=== PATIENT | male | born 1970 | race Caucasian/White ===

== ENCOUNTER → 2020-12-05 | Outpatient (CLI) | payer BC ==
[~2020-12-05] MED LIST: BENADRYL 25MG C25 MG PO; MEDROL DOSEPAK 24 MG PO; ZESTRIL/PRINIVI10 MG PO; ZYRTEC10 M3 PO
== END ==
LOC: KOH-I 14:18
DX: M79.604 Pain in right leg (principal); M54.41 Lumbago with sciatica, right side; M47.816 Spondylosis without myelopathy or radiculopathy, lumbar region
CPT/HCPCS: 72100; 73502

== ENCOUNTER 2021-05-09 03:27 | Emergency (ER) | payer BC ==
[2021-05-09 04:40] LABS: HEMOGLOBIN 14.2 gm/dl (14.0-17.5); RED BLOOD COUNT 4.84 M/UL (4.20-5.50)
[2021-05-09] MEDS ORDERED: FLOMAX 0.4 MG0.4 MG PO (06:02)
[2021-05-09] MEDS ORDERED: TORADOL 10 MG T10 MG PO (06:02)
[2021-05-09] MEDS ORDERED: ZOFRAN ODT 4 MG4 MG PO (06:02)
== END 2021-05-09 06:07 | disposition home or self-care (01) ==
LOC: ER1 03:27
PROVIDERS: Physician Assistant
DX: N13.2 Hydronephrosis with renal and ureteral calculous obstruction (principal); K57.30 Diverticulosis of large intestine without perforation or abscess without bleeding; I10 Essential (primary) hypertension; Z90.49 Acquired absence of other specified parts of digestive tract
CPT/HCPCS: 80053; 81001; 83690; 85025; 87086; 96374; 96375; 99284; J1885; J2405; J2765; J7030